=== PATIENT | female | born 1955 | race Caucasian/White ===

== ENCOUNTER 2017-08-17 07:50 | Outpatient (CLI) | payer OTHER | END 2017-08-17 07:51 | disposition home or self-care (01) | LOC: BICMAMMO 07:50 | PROVIDERS: ATTEND Nurse Practitioner Family | DX: Z12.31 Encounter for screening mammogram for malignant neoplasm of breast (principal); R92.1 Mammographic calcification found on diagnostic imaging of breast | CPT/HCPCS: 77063; 77067 ==

== ENCOUNTER 2019-08-15 08:29 | Outpatient (CLI) | payer MEDICARE ==
--- NOTE | 2019-08-15 09:27 | BD ---
EXAM: DEXA bone density examination HISTORY: Postmenopausal osteoporosis screening COMPARISON: None FINDINGS: L1--bone mineral density 0.789 g/sq cm; T score -1.8. Z score -0.2 L2--bone mineral density 0.884 g/sq cm; T score -1.3; Z score 0.5 L3--bone mineral density 0.860 g/sq cm; T score -2.0; Z score -0.1 L4--bone mineral density 0.937 g/sq cm; T score -1.1, Z score 0.8 Total L1-L4--bone mineral density 0.873 g/sq cm; T score -1.6, Z score 0.2 Left femoral neck--bone mineral density0.588; T score -2.3, Z score -0.8 Total proximal left femur--bone mineral density 0.774; T score -1.4, Z score -0 point This patient has a 10 year WHO fracture risk of a major osteoporotic fracture of 12% and of a hip fra cture of 2%. IMPRESSION: Based on the WHO criteria, the patient's bone mineral density is consideredosteopenic wit h moderate risk for fracture.
--- NOTE | 2019-08-15 11:24 | MMO ---
Bilateral MAMMO Bilat Screen [facility]. CLINICAL HISTORY: Patient is 63 years old and is seen for screening. The patient has no family history of breast cancer. The patient has no personal history of cancer. VIEWS: The views performed were: bilateral craniocaudal with tomosynthesis and bilateral mediolateral oblique with tomosynthesis. FILMS COMPARED: The present examination has been compared to a prior imaging study performed at [facility] on 08/17/2017. This study has been interpreted with the assistance of computer-aided detection. MAMMOGRAM FINDINGS: There are scattered fibroglandular densities. Finding 1: There are stable benign appearing calcifications seen in both breasts. Finding 2: There is a stable asymmetry seen in the upper-outer region of the left breast. There are no suspicious masses, suspicious calcifications, or new areas of architectural distortion. IMPRESSION: THERE IS NO MAMMOGRAPHIC EVIDENCE OF MALIGNANCY. A ROUTINE FOLLOW-UP MAMMOGRAM IN 1 YEAR IS RECOMMENDED. THE RESULTS OF THIS EXAM WERE SENT TO THE PATIENT. ACR BI-RADS Category 2 - Benign finding MAMMOGRAPHY NOTE: 1. A negative mammogram report should not delay a biopsy if a dominant of clinically suspicious mass is present. 2. Approximately 10% to 15% of breast cancers are not detected by mammography. 3. Adenosis and dense breasts may obscure an underlying neoplasm. Reported by: RORY NUNO MD Electonically Signed: [id number]
== END 2019-08-15 08:30 | disposition home or self-care (01) ==
LOC: BICMAMMO 08:29
PROVIDERS: ATTEND Nurse Practitioner Family
DX: Z12.31 Encounter for screening mammogram for malignant neoplasm of breast (principal); Z13.820 Encounter for screening for osteoporosis; Z78.0 Asymptomatic menopausal state
CPT/HCPCS: 77063; 77067; 77080

== ENCOUNTER 2020-10-29 08:11 | Outpatient (CLI) | payer MEDICARE | END 2020-10-29 08:12 | disposition home or self-care (01) | LOC: BICMAMMO 08:11 | PROVIDERS: ATTEND Nurse Practitioner Family | DX: Z12.31 Encounter for screening mammogram for malignant neoplasm of breast (principal) | CPT/HCPCS: 77063; 77067 ==

== ENCOUNTER 2022-05-25 10:56 | Outpatient (CLI) | payer MEDICARE | END 2022-05-25 10:57 | disposition home or self-care (01) | LOC: BICMAMMO 10:56 | PROVIDERS: ATTEND Nurse Practitioner Family | DX: Z12.31 Encounter for screening mammogram for malignant neoplasm of breast (principal) | CPT/HCPCS: 77063; 77067 ==